=== PATIENT | male | born 1960 | race Caucasian/White ===

== ENCOUNTER 2016-09-10 10:48 | Emergency (ER) | payer OTHER ==
[2016-09-10 11:11] LABS: BASOPHIL# 0.1 X 10^3uL (0.0-0.1); BASOPHILS 0.6 % (0.0-2.0); EOSINOPHILS 4.9 % (0.0-6.0); EOSINOPHILS# 0.4 X 10^3uL (0.0-0.4); HEMATOCRIT 45.8 % (42.0-54.0); HEMOGLOBIN 15.7 g/dL (14.0-18.0); LYMPHOCYTES 13.4 % (20.0-40.0); LYMPHOCYTES# 1.1 X 10^3uL (0.8-3.8); MEAN CELL VOLUME 84.2 fL (80.0-100.0); MEAN CORPUS. HGB CONCENTRATION 34.3 g/dL (32.0-36.0); MEAN CORPUSCULAR HEMOGLOBIN 28.8 pg (29.0-35.0); MEAN PLATELET VOLUME 7.7 fL (7.4-10.4); MONOCYTES 4.2 % (2.0-10.0); MONOCYTES# 0.4 X 10^3uL (0.2-1.0); NEUTROPHILS 76.9 % (54.0-75.0); NEUTROPHILS# 6.4 X 10^3uL (2.6-6.7); PLATELET COUNT 262 X 10^3uL (130-440); RED BLOOD COUNT 5.44 X 10^6uL (4.20-6.10); WHITE BLOOD COUNT 8.4 X 10^3uL (3.9-10.7)
[2016-09-10] MEDS ORDERED: NITROGLYCERIN 0.4 MG TAB.SUBL SUBLINGUAL ONE (11:12)
[2016-09-10 11:25] LABS: BLOOD UREA NITROGEN 20 mg/dL (9-20); CHLORIDE 100 mmol/L (98-107); EST GLOMERULAR FILTRATION RATE > 60 mL/min; GLUCOSE 136 mg/dL (70-100); MAGNESIUM 1.7 mg/dL (1.6-2.3); POTASSIUM 3.9 mmol/L (3.5-5.1); SODIUM 138 mmol/L (137-145)
[2016-09-10 11:37] LABS: TROPONIN I < 0.012 ng/mL (0.00-0.034)
--- NOTE | 2016-09-10 13:44 | RADIOLOGY REPORT ---
Limited inspiration single portable lordotic view of the chest without prior films for comparison demonstrates the heart and vessels to be unremarkable. The lung briggs are clear. No infiltrate, fluid or pneumothorax is seen. IMPRESSION: Unremarkable limited single view of the chest. MTDD
--- NOTE | 2016-09-10 14:30 | ER PHYSICIAN DOCUMENTATION ---
Physician Documentation [facility] Name:Isaac Argueta Age:56 yrs Sex:Male :1960 Arrival Date:09/10/2016 Time:10:48 BedTrauma C Private MD: Mulugeta Mcclendon Disposition: 09/10/16 14:15 Discharged to Home/Self Care. Impression: Chest Pain. - Condition is Good. - Discharge Instructions: CHEST PAIN, Uncertain Cause. - Medical Reconciliation form form. - Follow up: Private Physician; When: Wednesday or Wednesday next week. ; Reason: Recheck today's complaints. - Problem is new. - Symptoms have improved. - Notes: I spoke with Dr. Jessika Porter's nurse. She will schedule a stress test for you next wednesday or wednesday. Expect a call today or tomorrow to confirm. HPI: 09/10 11:00 This 56 yrs old Male presents to ER via Private Vehicle with complaints of jm Chest Pain. 11:00 The patient or guardian reports chest pain that is located primarily in the substernal jm area, anterior chest wall. Onset: 1 hour(s) ago. The pain does not radiate. There has been no movement of pain. Associated signs and symptoms: Pertinent positives: nausea, shortness of breath, Pertinent negatives: diaphoresis, dizziness. The chest pain is described as a heaviness, a pressure. Duration: The patient or guardian reports a single episode, that lasted 25 minute(s). Modifying factors: the symptoms are aggravated by activity. Severity of pain: in the emergency department the pain has improved. Risk factors for coronary artery disease include: This patient has a history of hypertension. The patient has not experienced similar symptoms in the past. The patient has not recently seen a physician. 56 yo M who was [place] and had some CP across his chest. It lasted about 25 minutes. He decided to drive to the ER. When he got here it had subsided. Pt was also SOB, but [place] . Historical: - Allergies: No known drug Allergies; - Home Meds: 1. Zebeta 10 mg oral tab 2. Lipitor Oral - PMHx: Hypertension; MIGRAINES; - PSHx: HERNIA REPAIR; - Tetanus: < 10 years. - Ebola Screening: : Patient negative for fever greater than or equal to 101.5 degrees Fahrenheit, and additional compatible Ebola Virus Disease symptoms. Patient denies exposure to infectious person. Patient denies travel to an Ebola-affected area in the 21 days before illness onset. . - Immunization history: Flu Vaccine None. - Social history: Smoking status: Patient states was never smoker of tobacco. ROS: 11:00 Constitutional: Negative for fatigue, fever. jm 11:00 ENT: Negative for sinus congestion, sinus pain. 11:00 Cardiovascular: Positive for chest pain, Negative for edema, paroxysmal nocturnal dyspnea. 11:00 Respiratory: Positive for shortness of breath, Negative for cough. 11:00 Abdomen/GI: Positive for nausea, Negative for abdominal pain, vomiting, diarrhea. 11:00 Back: Negative for radiated pain. 11:00 MS/extremity: Negative for swelling, tenderness. 11:00 Skin: Negative for rash, swelling. 11:00 Skin: Negative for diaphoresis. 11:00 Neuro: Negative for dizziness. 11:00 Psych: Negative for drug dependence, alcohol dependence. 11:00 All other systems are negative. Exam: 11:00 Constitutional: The patient appears in no acute distress, alert, awake, comfortable, jm obese. 11:00 Eyes: Periorbital structures: appear normal, Conjunctiva: normal. 11:00 ENT: Mouth: is normal, Voice: is normal. 11:00 Neck: Thyroid: appears normal, Trachea: is midline with no obvious abnormalities. 11:00 Chest/axilla: Inspection: normal, Palpation: tenderness, is not appreciated. 11:00 Cardiovascular: Rate: normal, Rhythm: regular, Heart sounds: normal, Edema: 1+ edema to level of left ankle and right ankle. 11:00 Respiratory: Respirations: normal, Breath sounds: are normal. 11:00 Abdomen/GI: Bowel sounds: normal, Palpation: abdomen is soft and non-tender. 11:00 Musculoskeletal/extremity: DVT Exam: No signs of deep vein thrombosis. Calves: are non-tender, have equal circumference. 11:00 Skin: Appearance: Color: pink, no rash present. 11:00 Neuro: Mentation: is normal, Memory: is normal, Gait: is steady. 11:00 Psych: Behavior/mood is cooperative, Affect is calm. Vital Signs: 10:56 BP 167 / 120; Pulse 80; Resp 18; Pulse Ox 97% 2 lpm ; Weight 132.9 kg; Height 5 ft. 11 lp in. (180.34 cm); Pain 2/10; 11:45 BP 144 / 99; Pulse 72; Resp 20; Pulse Ox 96% on 2 lpm NC; Pain 0/10; rs 13:57 BP 192 / 95; Pulse 69; Resp 16; Pulse Ox 97% on 2 lpm NC; lp 14:28 BP 162 / 107; Pulse 72; Resp 16; Pulse Ox 97% on R/A; lp 10:56 Body Mass Index 40.86 (132.90 kg, 180.34 cm) lp MDM: 11:09 Patient medically screened. jm 14:46 Differential diagnosis: acute myocardial infarction, anxiety, chest wall pain, jm gastritis, pleurisy, stable angina, unstable angina. Patient took aspirin. Data reviewed: vital signs, nurses notes, lab test result(s), EKG, radiologic studies, and as a result, I will continue to observe the patient. Test interpretation: by ED physician or midlevel provider: plain radiologic studies, ECG. Counseling: I had a detailed discussion with the patient and/or guardian regarding: the historical points, exam findings, and any diagnostic results supporting the discharge/admit diagnosis, lab results, radiology results, the need for outpatient follow up, with the patient's primary care provider, a software development leader. ECG:. ED course: Pt w exertional CP. Pain better on arrival. Pt mildly HTN. ASA and nitro given. EKG/trop/CXR all WNL, but given this happened 1 hours ago, I feel pt needs another set of enzymes. Pt placed on obs for a 2 more hours and the second trop came back undetectable. I feel comfortable letting pt go home. I spoke brendon Porter, who is his PCP's RN. She will schedule a stress test for him early next week. Pt DC'd home.. 09/10 11:20 Order name: CBC AUTO DIF, MDIF/RMOR IF IND; Complete Time: 14: [facility] 09/10 11:37 Order name: BASIC METABOLIC PANEL; Complete Time: 14: [facility] 09/10 11:37 Order name: MAGNESIUM; Complete Time: 14: [facility] 09/10 11:37 Order name: TROPONIN I; Complete Time: 14: [facility] 09/10 11:56 Order name: BNP,NT-PRO; Complete Time: 14: [facility] 09/10 13:48 Order name: TROPONIN I; Complete Time: 14: [facility] 09/10 10:58 Order name: 12-lead EKG; Complete Time: 11: 09/10 10:58 Order name: Iv Saline Lock; Complete Time: 11: 09/10 10:58 Order name: Place Patient On Monitor; Complete Time: : 09/10 10:58 Order name: Pulse Ox Continuous; Complete Time: 11:23 lp EC:46 Rhythm is regular. QRS [place] is Normal. [place] interval is normal. QRS interval is normal. QT interval is normal. No Q waves. T waves are Normal. No ST changes noted. Dispensed Medications: 11:03 Drug: Aspirin Chewable Tablet 324 mg; Route: PO; lp 11:50 Follow up: Response: No adverse reaction; No change in condition lp 11:04 Drug: Nitroglycerin 0.4 mg; Route: Sublingual; lp 12:00 Follow up: Response: No adverse reaction; No change in condition; Pain is decreased lp Signatures: Alexandra Robert RN RN rs Minoo Ramirez RN RN lp Meyer, John, MD MD jm
--- NOTE | 2016-09-10 14:30 | ER NURSING DOCUMENTATION ---
Nurse's Notes [facility] Name:Isaac Argueta Age:56 yrs Sex:Male :1960 Arrival Date:09/10/2016 Time:10:48 BedTrauma C Private MD: Diagnosis:Chest Pain Presentation: 09/10 10:55 Presenting complaint: Patient states: Chest pain with exertion. Transition of care: lp Home. AIR CAT ACTIVATION no. Notified ED Physician of Romero Waldron notified. 10:55 Method Of Arrival: Private Vehicle lp 10:55 Acuity: VANESA 2 lp 11:06 Asprin Given Given in ED 324 mg po. lp Triage Assessment: 10:55 General: Appears in no apparent distress, well developed, well groomed, Behavior is rs cooperative, pleasant. Pain: Complains of pain in "Tightness" across chest which started while he was at [place] and has improved with coming down in elevation. Pain does not radiate. Pain currently is 2 out of 10 on a pain scale. At worst was 7 out of 10 on a pain scale. Quality of pain is described as Pain began Is 25 minutes. Neuro: No deficits noted. Level of Consciousness is awake, alert, Oriented to person, place, time, event. Cardiovascular: Capillary refill < 3 seconds Heart tones S1 S2 Pulses are 3+ in left radial artery Rhythm is sinus rhythm Chest pain is described as mild, quality is tightness. Respiratory: No deficits noted. Respiratory effort is even, unlabored, Respiratory pattern is regular, symmetrical, Breath sounds are clear bilaterally. in right upper lobe and left upper lobe Breath sounds are diminished bilaterally. in left posterior lower lobe, right posterior middle lobe and right posterior lower lobe Reports shortness of breath since Since arriving [place] from [place] yesterday. the patient has mild shortness of breath. GI: No deficits noted. Bowel sounds present X 4 quads. Denies diarrhea, nausea, vomiting. Derm: No deficits noted. Skin is pink, warm & dry. Historical: - Allergies: No known drug Allergies; - Home Meds: 1. Zebeta 10 mg oral tab 2. Lipitor Oral - PMHx: Hypertension; MIGRAINES; - PSHx: HERNIA REPAIR; - Tetanus: < 10 years. - Ebola Screening: : Patient negative for fever greater than or equal to 101.5 degrees Fahrenheit, and additional compatible Ebola Virus Disease symptoms. Patient denies exposure to infectious person. Patient denies travel to an Ebola-affected area in the 21 days before illness onset. . - Immunization history: Flu Vaccine None. - Social history: Smoking status: Patient states was never smoker of tobacco. Screenin:04 Infectious Disease Risk None. Abuse screen: Denies threats or abuse. Nutritional rs screening: No deficits noted. Assessment: 11:43 Reassessment: Patient states feeling better. Patient states symptoms have improved. rs Patient appears in no apparent distress at this time. Given copy of lab results. Will repeat in 2 hours. Lights turned down, doors closed, has call light. States he will nap. . Cardiovascular: No deficits noted. Rhythm is sinus rhythm. Vital Signs: 10:56 BP 167 / 120; Pulse 80; Resp 18; Pulse Ox 97% 2 lpm ; Weight 132.9 kg; Height 5 ft. 11 lp in. (180.34 cm); Pain 2/10; 11:45 BP 144 / 99; Pulse 72; Resp 20; Pulse Ox 96% on 2 lpm NC; Pain 0/10; rs 13:57 BP 192 / 95; Pulse 69; Resp 16; Pulse Ox 97% on 2 lpm NC; lp 14:28 BP 162 / 107; Pulse 72; Resp 16; Pulse Ox 97% on R/A; lp 10:56 Body Mass Index 40.86 (132.90 kg, 180.34 cm) lp ED Course: 10:49 Patient arrived in ED. lm3 10:51 EKG done. (by ED staff). Reviewed by Alexandra Robert RN. rs 10:55 Triage completed. lp 10:56 Notified ED Physician of patient's arrival and chief complaint. Dr. Jasso notified. rs 11:03 Alexandra Robert, RN is Primary Nurse. rs 11:04 Valuables Remains with patient Patient has correct armband on for positive lp identification. Placed in gown. Bed in low position. Call light in reach. canine deputy on. Pulse ox on. NIBP on. 11:04 canine deputy on. Pulse ox on. Door closed. Noise minimized. Verbal reassurance rs given. Warm blanket given. 11:04 Oxygen Oxygen administration via nasal cannula @ 2L/min. lp 11:04 Inserted saline lock: 20 gauge in right and blood collected. in right upper arm. rs 11:06 EKG done. (by ED staff). lp 11:07 No apparent distress. Resting quietly. rs 11:09 Mulugeta Jasso MD is Attending Physician. dmitry 11:12 Port Xray Completed. negin 13:08 Resting quietly. rs Administered Medications: 11:03 Drug: Aspirin Chewable Tablet 324 mg; Route: PO; lp 11:50 Follow up: Response: No adverse reaction; No change in condition lp 11:04 Drug: Nitroglycerin 0.4 mg; Route: Sublingual; lp 12:00 Follow up: Response: No adverse reaction; No change in condition; Pain is decreased lp Outcome: 14:15 Discharge ordered by . dmitry 14:29 Discharged to home lp 14:29 Condition: improved 14:29 Instructed on discharge instructions, follow up and referral plans. 14:29 Patient left the ED. lp 03/17 09:28 Discharge F/U Call: Unable to reach: no answer ke Signatures: Alexandra Robert RN RN Minoo Renee RN Mulugeta Mcfadden lp, MD MD jm Abbott, Laura lea Evens, Kerry, RN RN Michelle Briscoe [facility]
== END 2016-09-10 14:30 | disposition home or self-care (01) ==
LOC: ER 10:48
DX: R07.9 Chest pain, unspecified (principal); R06.02 Shortness of breath; R11.0 Nausea; R60.0 Localized edema; I10 Essential (primary) hypertension; Z79.899 Other long term (current) drug therapy
CPT/HCPCS: 36415; 71010; 80048; 83735; 83880; 84484; 85025; 93005; 99285